=== PATIENT | female | born 1980 | race Caucasian/White ===

== ENCOUNTER → 2023-08-19 08:28 | Outpatient (REF) | payer BC, SELFPAY | LOC: RCS 08:28 | PROVIDERS: ATTENDING PHYSICIAN Physician Assistant Medical | DX: R00.2 Palpitations (principal); E78.49 Other hyperlipidemia | CPT/HCPCS: 93225; 93226 ==

== ENCOUNTER → 2023-08-30 09:57 | Outpatient (REF) | payer BC, SELFPAY | LOC: HWRCS 09:57 | PROVIDERS: ATTENDING PHYSICIAN Physician Assistant Medical | DX: R00.2 Palpitations (principal) | CPT/HCPCS: 93306 ==

== ENCOUNTER 2023-09-01 19:05 | Emergency (ER) | payer BC, SELFPAY ==
[2023-09-01 19:07] VITALS: BP 146/98
[2023-09-01 19:18] VITALS: BMI 22.3
[2023-09-01 19:20] VITALS: BP 130/90
[2023-09-01 19:35] LABS: % Basophils 0.7 % (0-2); % Eosinophils 2.3 % (0-6); % Immature Granulocytes 0.3 % (0-0.5); % Lymphocytes 33.3 % (20.5-51.1); % Monocytes 7.1 % (1.7-9.3); % Neutrophils 56.3 % (42.2-75.2); Absolute Basophils 0.1 10^3/uL (0-0.2); Absolute Eosinophils 0.2 10^3/uL (0-0.7); Absolute Lymphocytes 2.3 10^3/uL (1.2-3.4); Absolute Monocytes 0.5 10^3/uL (0.1-0.6); Absolute Neutrophils 3.9 10^3/uL (1.4-6.5); Hematocrit 37.6 % (37.0-47.0); Hemoglobin 13.5 g/dL (12.0-16.0); Mean Corp Hgb Conc. 35.9 g/dL (33.0-37.0); Mean Corpuscular Hgb 29.9 pg (27.0-31.0); Mean Corpuscular Volume 83.4 fL (81.0-99.0); Mean Platelet Volume 11.7 fL (7.4-10.4); Nucleated Red Blood Cells % 0 %; Platelet Count 173 10^3/uL (130-400); Red Blood Cell Count 4.51 10^6/uL (4.20-5.40); Red Cell Dist. Width 12.1 % (11.5-14.5); White Blood Cell Count 6.9 10^3/uL (4.8-10.8)
[2023-09-01 19:48] LABS: ALT (SGPT) 13 U/L (0-35); AST (SGOT) 27 U/L (14-36); Albumin 3.8 g/dl (3.5-5.0); Alkaline Phosphatase 41 U/L (38-126); Blood Urea Nitrogen 16 mg/dl (7-17); Calcium 9.2 mg/dl (8.4-10.2); Carbon Dioxide 27 mmol/L (22-30); Chloride 103 mmol/L (98-107); Estimated Creatinine Clearance 101 ml/min; Glucose 102 mg/dl (70-99); Potassium 4.1 mmol/L (3.5-5.1); Sodium 134 mmol/L (135-145); Total Bilirubin 0.7 mg/dl (0.2-1.3); Total Protein 6.7 g/dl (6.3-8.2); eGFR > 60.00
[2023-09-01 20:00] VITALS: BP 126/93
[2023-09-01 20:39] VITALS: BP 129/84
[2023-09-01 20:49] LABS: TSH 1.49 uIU/ml (0.47-4.68)
[2023-09-01] MEDS: CARDIZEM CD 120 MG PO (20:57)
--- NOTE | 2023-09-01 21:27 | ED.GENMED ---
History of Present Illness
General
Chief Complaint: Heart Rate Problem
Source: patient
Exam Limitations: none
Time Seen by Provider: 09/01/23 19:17
Nursing documentation reviewed up to this point in time: agreed with
Travel History
Have you had any contact with someone who has COVID-19?: No
Do you have any symptoms of coronavirus? Fever > 100 degrees, chills, cough, shortness of breath, sore throat, loss of taste or smell, muscle aches, or headache?: No
History of Present Illness
History of Present Illness:
Patient is a pleasant 43-year-old female with a past medical history of elevated cholesterol, which she reports is untreated, who presents with palpitations that started about 2 hours ago. Patient reports that for years she has had intermittent
palpitations and they have never been caught on a monitor before. She reports that over the last few months, the frequency and length of the palpitations have increased. She denies chest pain or shortness of breath. She denies a history of PE and
DVT. Patient reports she has an appointment with cardiology this coming Saturday, in 2 days, to address her elevated cholesterol. Patient denies a history of cigarette and drug use. She reports she drinks coffee on a daily basis.
Past History
Past History
ED Past Medical History: Hypercholesterolemia
ED Past Surgical History: Gynecological
Patient has exhibited threatening behavior?: No
Social History
Tobacco: Non-smoker
Alcohol: Occasional
Drug: None
Personal:
Living: with family
Employment: Other
Family History
Family History: Other
Review of Systems
Review of Systems
Allergies reviewed?: Yes
All Other Systems: ROS reviewed and negative except as documented in HPI and ROS
Constitutional: Reports no symptoms
EENT: Reports no symptoms
Respiratory: Reports no symptoms
Cardiac: Reports palpitations
ABD/GI: Reports no symptoms
: Reports no symptoms
Skin: Reports no symptoms
Neurological: Reports no symptoms
Endocrine: Reports no symptoms
Hematologic/Lymphatic: Reports no symptoms
Psychiatric: Reports no symptoms
Phy Exam
Physical Exam
Physical Exam:
Physical Exam
General: no apparent distress, not acutely ill
Neck: supple. no meningeal signs. normal psoterior pharynx
Heart: Tachycardic
Lungs: no acute respiratory distress. clear bilaterally
Abdomen: normal bowel sounds. not tender. no CVAT
Neuro: alert and oriented. no focal neurological deficits
Skin: no rash
Psychiatric: well kept. interactive and cooperative
Extremities: no edema. no calf tenderness. negative homans. good distal pulses
Course
Orders/Labs/Results
Orders:
Orders
09/01/23 19:08
EKG [Electrocardiogram (*1)] Stat
Reason for Study: Palpitations
EKG- Treatment ONCE
09/01/23 19:29
Complete Blood Count/With Diff Urgent
Comprehensive Metabolic Panel Urgent
TSH Urgent
Comment: ADD ON
09/01/23 19:55
Add On- LAB Urgent
Tests Added?: TSH
09/01/23 20:38
EKG [Electrocardiogram (*1)] Urgent
Reason for Study: Tachycardia
EKG- Treatment ONCE
09/01/23 20:48
Diltiazem Extended Release [Cardizem Cd] 120 mg PO NOW STA
Abnormal Lab Results
09/01/23
19:29
MPV 11.7 H fL
(7.4-10.4)
Sodium 134 L mmol/L
(135-145)
Glucose 102 H mg/dl
(70-99)
09/01/23 19:29
09/01/23 19:29
Vital Signs
Initial and Last Documented VS:
Initial Vital Signs
Temp Pulse Resp BP Pulse Ox
98 F 128 22 146/98 100
09/01/23 19:07 09/01/23 19:07 09/01/23 19:07 09/01/23 19:07 09/01/23 19:07
Last Documented Vital Signs
Temp Pulse Resp BP Pulse Ox
98 F 82 16 129/84 100
09/01/23 19:07 09/01/23 20:57 09/01/23 20:45 09/01/23 20:57 09/01/23 19:22
MDM/Problems Addressed
Differential Diagnosis Includes:
Atrial flutter, sinus tachycardia, reentry tachycardia
MDM/Problems Addressed:
Patient presents with acute on chronic palpitations
Acute Exacerbation and/or Progression of Chronic Illness: HTN
*Pulse Oximetry
Patient hypoxic: no
*EKG
Interpreted by ED Provider?: Yes
Interpretation: abnormal
Rate: tachycardiac
Rhythm: SVT
Addison: normal axis
Interval: normal interval
QRS Pattern: normal QRS
Ischemia: non-specific ST changes
*Medical Technicians Interpretation
Rate: tachycardiac
Interpretation: abnormal
Rhythm: SVT
*Critical Care Note
Total Time (30-74mins, 75-104mins- exclusive of procedures): Not Applicable
Data Reviewed
Review of Other/Old Records Reveals: Testing (cardiac echo from 08/30/2023 shows no significant abnormalities)
Source: patient
Patient Management
Social determinants of health affecting care: Living situation and Strong social support
Discussion with other providers: Other (Dr Michael Patton reviewed EKG and feels this is likely a re-entry tachycardia. suggested valsalva and start on 120 of Diltiazem CD)
Escalation/DeEscalation of care consider admission/obs:
Patient got up to go to the bathroom. After coming back to the bathroom, she was found to be in normal sinus rhythm with heart rate in the 80s. EKG done which confirms normal sinus rhythm on EKG. Patient encouraged to start diltiazem and
follow-up with cardiology as scheduled this Saturday.
ED Attending Note
-
Portions of this chart may have been created with voice recognition software.� Occasional wrong word or��sound alike� substitutions may have occurred due to the inherent limitations of voice recognition software.
Discharge Plan
Departure
Patient Disposition: Home (Routine Discharge)
Date of Disposition: 09/01/23
Time of Disposition: 20:49
Patient with high blood pressure during this ER visit?: Yes
Condition: Good
Covid-19: Not Applicable
Discharge Problem:
Atrioventricular clifton re-entry tachycardia
Instructions: Supraventricular tachycardia (SVT), BLOOD PRESSURE
Prescriptions:
New
diltiazem HCl 120 mg capsule,extended release 24hr
120 mg PO DAILY Qty: 30 0RF
No Action
sertraline 50 MG tablet
50 mg PO DAILY
oseltamivir 75 MG capsule
75 mg PO BID Qty: 9 0RF
Referrals:
Kimberly Haas PA [Family Provider] -
Activity Restrictions/Additional Instructions:
Follow-up with cardiology as scheduled this Saturday
Interventions
Interventions:
*Risk Screen - Suicide Last Done: 09/01/23 19:07
*General Assessment Last Done: 09/01/23 19:18
*Neglect/Abuse Screening Last Done: 09/01/23 19:07
ED- Fall Risk Assessment Last Done: 09/01/23 19:18
*ED COVID-19 Vaccine History Last Done: 09/01/23 19:18
*Nursing Disposition Last Done: 09/01/23 21:03
ED- Cardiac Assessment Last Done: 09/01/23 19:18
ED- Pulmonary Assessment Last Done: 09/01/23 19:18
Discharge Date and Time
Discharge Date/Time: 09/01/23 21:03
== END 2023-09-01 21:03 | disposition home or self-care (01) ==
LOC: EMR 19:05
PROVIDERS: EMERGENCY PHYSICIAN Emergency Medicine; FAMILY PHYSICIAN Physician Assistant Medical
DX: I47.19 Other supraventricular tachycardia (principal); R06.02 Shortness of breath; R42 Dizziness and giddiness; R03.0 Elevated blood-pressure reading, without diagnosis of hypertension; E78.00 Pure hypercholesterolemia, unspecified; F32.A Depression, unspecified
CPT/HCPCS: 99284; 80053; 84443; 85025; 93005

== ENCOUNTER 2023-11-06 09:10 | Day surgery (SDC) | payer BC, SELFPAY ==
[2023-10-31 10:41] VITALS: BMI 20.8
[2023-10-31 11:12] LABS: % Basophils 0.7 % (0-2); % Eosinophils 2.5 % (0-6); % Immature Granulocytes 0.2 % (0-0.5); % Lymphocytes 23.7 % (20.5-51.1); % Monocytes 6.5 % (1.7-9.3); % Neutrophils 66.4 % (42.2-75.2); Absolute Eosinophils 0.2 10^3/uL (0-0.7); Absolute Lymphocytes 1.4 10^3/uL (1.2-3.4); Absolute Monocytes 0.4 10^3/uL (0.1-0.6); Hematocrit 37.2 % (37.0-47.0); Hemoglobin 13.1 g/dL (12.0-16.0); Mean Corp Hgb Conc. 35.2 g/dL (33.0-37.0); Mean Corpuscular Hgb 30.3 pg (27.0-31.0); Mean Corpuscular Volume 85.9 fL (81.0-99.0); Mean Platelet Volume 12.2 fL (7.4-10.4); Nucleated Red Blood Cells % 0 %; Platelet Count 165 10^3/uL (130-400); Red Blood Cell Count 4.33 10^6/uL (4.20-5.40); Red Cell Dist. Width 12.3 % (11.5-14.5)
[2023-10-31 11:22] LABS: HCG, Serum Qualitative Screen Negative
[2023-10-31 11:36] LABS: ALT (SGPT) 20 U/L (0-35); AST (SGOT) 33 U/L (14-36); Albumin 4.5 g/dl (3.5-5.0); Alkaline Phosphatase 51 U/L (38-126); Blood Urea Nitrogen 21 mg/dl (7-17); Calcium 9.8 mg/dl (8.4-10.2); Carbon Dioxide 27 mmol/L (22-30); Chloride 103 mmol/L (98-107); Estimated Creatinine Clearance 90 ml/min; Glucose 85 mg/dl (70-99); Sodium 136 mmol/L (135-145); Total Bilirubin 0.8 mg/dl (0.2-1.3); Total Protein 7.1 g/dl (6.3-8.2); eGFR > 60.00
[2023-11-06] VITALS (13 sets, daily range): BP systolic 101–140; BP diastolic 58–79
--- NOTE | 2023-11-06 12:16 | ITS.CL.ABL ---
Credit Controller - Ablation
Ablation
Procedure Report:
Primary Physician: SUMI Pavon/Adolfo Crook MD
Procedure Date: 11/06/2023
Procedure
Electrophysiology Study with SVT ablation
Left atrial recording / pacing
IV drug for arrhythmia induction
Patient History
Patient is a pleasant 43-year-old female with a past medical history significant for depression/anxiety, hypercholesterolemia, palpitations, and paroxysmal supraventricular tachycardia referred for palpitations. Patient noted to have narrow complex
regular supraventricular tachycardia at 120 bpm; this appears to be a short RP tachycardia. Patient had persistent symptoms on calcium channel kenny.
Method
After informed consent was obtained, the patient was brought to the EP lab in a post-absorptive, non-sedated state. A peripheral IV was in place. Continuous electrocardiography, blood pressure and pulse oximetry monitoring was initiated and
cardioversion / defibrillator electrodes were positioned on the chest in an AP orientation. A 'time-out' was called. Conscious sedation was administered with the assistance of the anesthesia services, and local anesthesia was given at the femoral
vein access sites.
Using modified Seldinger technique, vascular access was achieved and sheaths were placed. Multipolar catheters were advanced to the coronary sinus, His bundle recording position, right ventricle, and high right atrium. Following the determination
of baseline conduction intervals, comprehensive EP study was performed. Pacing and recording from the RV, HBE, and CS / LA was performed.
For arrhythmia details, see below.
Fluoroscopy time:
4.7 min; 6.54 mGy; DAP 0.834
Total RF time:
3 minutes 34 seconds
Estimated Blood Loss
5-10 mL
Complications
None
At the end of the procedure, all catheters and sheaths were removed and hemostasis was assured with Vascade MVP/Vascade for each sheath and manual pressure. Protamine was used for reversal. The patient was returned to the recovery area in stable
condition.
Access Sites:
Left Femoral Vein: 2 sheaths (7 Fr, 6 Fr)
Right Femoral Vein: 2 sheaths (9 Fr upsized to 11.5 Fr, 6 Fr)
Baseline Intervals:
Rhythm: Sinus rhythm
NC: 160 ms
AH: 90 ms
HV: 47 ms
QRS: 90 ms
QT: 430 ms
Post-Procedure Intervals:
NC: 170 ms
AH: 88 ms
HV: 51 ms
QRS: 90 ms
QT: 390 ms
QTc: 455 ms
A-A: 764 ms
R-R: 760 ms
AV Conduction:
- AVWB at 410 msec
- VAWB at 400 msec
Refractory Periods
-AVN ERP (post) 600/350 ms
Procedure Synopsis:
The patient entered the room in sinus rhythm. Following placement of the RV, HIS, CS catheters prior to placement of the HRA catheter, patient went into spontaneous SVT. SVT appeared to be A�on�V tachycardia with a VA time < 30 ms. Tachycardia
cycle length was 510 to 530 ms. Overdrive V pacing demonstrated a VAV response. Stim�A minus VA time was greater than 85 ms and the PPI minus TCL was greater than 115 ms. Given VAV response, SA minus VA, PPI minus TCL, and a on V tachycardia
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 Para-Hisian pacing demonstrated a clifton response ruling out septal accessory pathway. With atrial pacing, tachycardia was terminated. Baseline intervals and electrophysiology study was performed. Patient
demonstrated AH jump at 600/350 ms with induction of SVT at 600/310 ms. Atrial ERP was noted at 600/250 ms. Given the presence of an AH jump, induction of tachycardia with atrial extrastimuli, and previously mentioned V pacing responses, diagnosis
was confirmed slow fast AVNRT. Heparin was provided and ACT monitored for goal 300-400 while HD grid was used. HD grid was then advanced into the right atrium and electroanatomic mapping was performed with high density grid catheter demonstrating
in sinus rhythm with voltage and activation. Slow pathway was defined through activation and low voltage at the floor of the coronary sinus near the tricuspid valve. Following extensive mapping of the right atrium, HD grid was withdrawn and short
9 Amharic femoral venous sheath was exchanged for an 11.5 Amharic steerable Agilis sheath. TactiCath SE DF curve with reduced flow was advanced into the right atrium and placed at the region of the slow pathway as demonstrated by electroanatomic
mapping, fluoroscopy, and EGM signals demonstrating a 1:3 to 1:10 ratio A:V. Targeting power of 20 W, ablation was performed in this region with careful monitoring of EGM's for AV conduction. AV conduction remained intact throughout the entirety
of ablation lesions. During ablation in this region, appropriate junctional's were noted. Following ablation lesions, electrophysiology study was once more performed. Isoproterenol was utilized to assist in induction of tachycardia. There was no
evidence of AH jump with single extrastimuli and patient remained noninducible during isoproterenol infusion, at washout of isoproterenol, and at baseline. Patient remained noninducible for tachycardia or AH jump at the completion of the study.
Baseline measurements and electrophysiology study were then performed, following this, catheters were removed from the body and hemostasis was assured as noted above.
Recommendations
-Anticipate same-day discharge of patient meeting clinical metrics
- Bedrest with straight-leg precautions
- Continue home medications as indicated
- Follow-up in office in 4-6 weeks
Dick Christie DO
Clinical Cardiac Electrophysiology
cc: SUMI Pavon; Adolfo Crook MD
[2023-11-06 13:33] LABS: ACT-LR - POC 269 Seconds (116-155)
[2023-11-06 13:54] LABS: ACT-LR - POC 356 Seconds (116-155)
[2023-11-06 14:16] LABS: ACT-LR - POC 285 Seconds (116-155)
[2023-11-06 14:36] LABS: ACT-LR - POC 152 Seconds (116-155)
[2023-11-06] MEDS: TYLENOL 650 MG PO (15:54)
== END 2023-11-06 17:30 | disposition home or self-care (01) ==
LOC: CATH 09:10
PROVIDERS: ATTENDING PHYSICIAN Internal Medicine Cardiovascular Disease; FAMILY PHYSICIAN Physician Assistant Medical
DX: F41.9 Anxiety disorder, unspecified (principal); I47.10 Supraventricular tachycardia, unspecified; G43.909 Migraine, unspecified, not intractable, without status migrainosus; Z83.438 Family history of other disorder of lipoprotein metabolism and other lipidemia; F32.A Depression, unspecified; E78.00 Pure hypercholesterolemia, unspecified
CPT/HCPCS: C1732; C1730; C1894; C1766; C2630; C1892; 36415; 76937; 80053; 83735; 84703; 85025; 85347; 93005; 93623; 93653; C1760

== ENCOUNTER → 2024-08-06 19:08 | Outpatient (REF) | payer BC, SELFPAY | LOC: WDC 19:08 | PROVIDERS: ATTENDING PHYSICIAN Nurse Practitioner Family | DX: Z12.31 Encounter for screening mammogram for malignant neoplasm of breast (principal) | CPT/HCPCS: 77063; 77067 ==